=== PATIENT | female | born 1985 | race Caucasian/White ===

== ENCOUNTER → 2016-10-27 | Outpatient (CLI) | payer OTHER, MEDICAID ==
[2016-10-27 13:45] LABS: HEMATOCRIT 35.4 % (36.0-47.0); HEMOGLOBIN 12.3 g/dL (12.0-15.5); HGB HCT DIFFERENCE 1.5; MEAN CORPUSCULAR HEMOGLOBIN 30.1 pg (27.0-33.4); MEAN CORPUSCULAR HGB CONC 34.9 g/dL (32.0-36.0); MEAN CORPUSCULAR VOLUME 86 fl (80-97); RED CELL DISTRIBUTION WIDTH 13.1 % (11.5-14.0); WHITE BLOOD COUNT 4.4 10^3/uL (4.0-10.5)
== END ==
LOC: OD 12:53
PROVIDERS: ATTEND Specialist
DX: G43.909 Migraine, unspecified, not intractable, without status migrainosus (principal)
CPT/HCPCS: 36415; 84460; 85027

== ENCOUNTER → 2016-10-31 | Outpatient (CLI) | payer OTHER, MEDICAID | LOC: RAD 11:29 | PROVIDERS: ATTEND Specialist | DX: M54.12 Radiculopathy, cervical region (principal) | CPT/HCPCS: 72141 ==

== ENCOUNTER → 2016-11-10 | Outpatient (CLI) | payer OTHER, MEDICAID ==
[2016-11-10 17:36] LABS: HEMATOCRIT 36.6 % (36.0-47.0); HEMOGLOBIN 12.4 g/dL (12.0-15.5); HGB HCT DIFFERENCE 0.6; MEAN CORPUSCULAR HEMOGLOBIN 29.8 pg (27.0-33.4); MEAN CORPUSCULAR HGB CONC 33.8 g/dL (32.0-36.0); MEAN CORPUSCULAR VOLUME 88 fl (80-97); RED BLOOD COUNT 4.14 10^6/uL (3.72-5.28); WHITE BLOOD COUNT 4.9 10^3/uL (4.0-10.5)
[2016-11-10 17:58] LABS: ALANINE AMINOTRANSFERASE 24 U/L (9-52)
[2016-11-10 18:09] LABS: VALPROIC ACID < 10.0 ug/mL (50.0-120.0)
== END ==
LOC: OD 16:25
PROVIDERS: ATTEND Specialist
DX: G43.909 Migraine, unspecified, not intractable, without status migrainosus (principal)
CPT/HCPCS: 36415; 80164; 84460; 85027